=== PATIENT | female | born 1975 | race Caucasian/White ===

== ENCOUNTER → 2022-06-17 | Day surgery (SDC) | payer BC ==
[~2022-06-17] MED LIST: ADDERALL XR 2020 MG PO; FENTANYL CITRATE/PF 100MCG/2 ML INJ ONE; HYOSCYAMINE SULFATE 0.5 MG/ML INJ ONE; LIDOCAINE HCL 2% LOCAL INJ 5 ML SDV VIAL INJ ONE; METOCLOPRAMIDE HCL 10 MG/2ML VIAL ONE; MIDAZOLAM HCL 2 MG/2 ML VIAL ONE; PROPOFOL IV EMULSION 10 MG/ML 20 ML VIAL ONE
[2022-06-17 11:05] VITALS: BP 119/91
== END | disposition home or self-care (01) ==
LOC: OR 08:27
PROVIDERS: ATTEND Internal Medicine Gastroenterology
DX: Z12.11 Encounter for screening for malignant neoplasm of colon (principal); K29.50 Unspecified chronic gastritis without bleeding; K21.9 Gastro-esophageal reflux disease without esophagitis; K20.90 Esophagitis, unspecified without bleeding; K64.8 Other hemorrhoids; N20.0 Calculus of kidney; F98.8 Other specified behavioral and emotional disorders with onset usually occurring in childhood and adolescence; Z88.6 Allergy status to analgesic agent; Z79.899 Other long term (current) drug therapy; Z80.0 Family history of malignant neoplasm of digestive organs
CPT/HCPCS: 43239; 45378; C9113; J1980; J2001; J2250; J2704; J2765; J3010